=== PATIENT | female | born 1970 | race Two or more races ===

== ENCOUNTER 2022-07-02 04:19 | Emergency (ER) | payer MEDICAID ==
[~2022-07-02] VITALS: Ht 154.9 cm; Wt 65.7 kg
[2022-07-02] MEDS ORDERED: MORPHINE SULFATE INJ 2 MG/ml SYRG IM ONE (09:15)
[2022-07-02] MEDS ORDERED: ONDANSETRON ODT 4 MG TAB PO ONE (09:15)
[2022-07-02] MEDS ORDERED: CYCL-839 PO (09:21)
[2022-07-02] MEDS ORDERED: ACET1CAP14 PO (09:22)
[2022-07-02 10:23] VITALS: BP 107/66
== END 2022-07-02 09:23 | disposition home or self-care (01) ==
LOC: ER 04:19
DX: M75.31 Calcific tendinitis of right shoulder (principal); Z90.710 Acquired absence of both cervix and uterus
CPT/HCPCS: 73030; 96372; 99283; J2270; Q0162